=== PATIENT | male | born 1950 | race Caucasian/White ===

== ENCOUNTER 2017-05-07 16:09 | Inpatient (IN) | payer OTHER ==
[~2017-05-07] VITALS: Ht 188 cm; Wt 96.4 kg
--- NOTE | ~2017-05-07 | HC ---
[facility] [place] [address] CONSULTATION Name: JOCE YANG Room #: 206-P [facility] IN M.R.#: [id number] Admission: 05/07/17 Attend Phys: Tello Patrick MD Discharge: 05/11/17 Date of : 46 Report #: [id number] THIS REPORT FOR: //name// CC: Tello Patrick CARDIOLOGY CONSULTATION HISTORY OF PRESENT ILLNESS: The patient is a 66-year-old male, has a history of coronary artery disease and then followed by Dr. Sethi's group, Dr. Abdalla I think these gentlemen are both retired at [employer]. He has a stage 4 melanoma with metastatic disease to the lung and liver. He has been treated with multiple chemotherapy agents, but most recently Opdivo last Friday. He is having some progressive shortness of breath. He had some hypertension and bradydysrhythmias. He felt somewhat dizzy and lightheaded and short of breath and subsequently brought over by his ex- who they live together. Does have some short nonsustained runs of VT, which were noted in the ER and amiodarone drip was started. Also, the EKG does have some suspicious findings relatively unremarkable initially with an ST depression, which became marked in the anterior lateral leads. There were some lateral ST depression at baseline, but the anterior became more pronounced. Currently repeating this EKG. He feels comfortable. He denies current shortness of breath. HOME MEDICATIONS: Have been lisinopril, rosuvastatin, niacin, Plavix, CoQ10, levothyroxine, gabapentin, Xanax p.r.n., Ceftin recently and Omnicef, lisinopril he states although not on his list. PAST MEDICAL AND SURGICAL HISTORY: Positive for coronary artery disease and subsequent bypass surgery 2003, peripheral vascular disease followed by Dr. Maradiaga with left leg stents and the femoral-femoral artery bypass, hypertension, hypercholesterolemia, metastatic melanoma, history of squamous cell. REVIEW OF SYSTEMS: Negative except for stated above. There is some nocturia and some progressive dyspnea and shortness of breath. FAMILY HISTORY: Negative for premature coronary artery disease. SOCIAL HISTORY: He lives with his ex-. He still works. No children. He was a heavy tobacco user for 40 years, moderate alcohol use. PHYSICAL EXAMINATION: GENERAL: He is pleasant, alert. He is relatively asymptomatic. No chest pain or pressure currently. VITAL SIGNS: Blood pressure 134/100, pulse is 80s and some occasional frequent PVCs still noted, but improved on the monitor. HEENT: Pharynx is clear. NECK: Shows preserved upstrokes. [facility] [address] [place] [address] CONSULTATION Name: JOCE YANG [place] Room #: 206-P DIS IN M.R.#: [id number] Admission: 05/07/17 Attend Phys: Tello Patrick MD Discharge: 05/11/17 Date of : 46 Report #: [id number] LUNGS: Prolonged expiratory phase, but clear. CARDIOVASCULAR: Regular rate and rhythm, S1, S2 distant. ABDOMEN: Soft. No HSM or abdominal bruit. EXTREMITIES: Reveal no edema. Distal pulses were intact, diminished, I cannot palpate the DP. NEUROLOGIC: Intact. MUSCULOSKELETAL: No gross joint deformity. SKIN: There are multiple areas of actinic keratoses on his face. LABORATORY WORK: Troponin 0.15. BNP 4055, potassium 3.4. This has been replaced. Liver function tests are otherwise normal. H and H 13.5 and 37.6, white count 9.7, platelets 201. ASSESSMENT: 1. Chest pain, possible anginal equivalent. 2. Metastatic melanoma stage 4, currently Opdivo therapy. 3. Chronic dyspnea, chronic obstructive pulmonary disease with prior tobacco use. 4. Hypertension. 5. Hypercholesterolemia. RECOMMENDATIONS AND PLAN: We will obtain a troponin in the a.m., did have significant ST depression, which is essentially resolved in this anterior leads, so presumably would represent an ischemic response here. I will give him a shot of Lovenox tonight. Continue with the IV amiodarone load, may be ischemic driven, restart a statin. Check lipids, echo Doppler in the morning. We will consider cardiac catheterization, but presumably that would be in a day and a half from now. We will continue to load with the amiodarone, correct the potassium. We will follow with you. Thank you for asking me to assist in the care of this patient. <ELECTRONICALLY SIGNED> By: Davion Beck MD, FACC 05/30/17 0800 2224 0303 Davion Beck MD, FACC /nt
--- NOTE | ~2017-05-07 | EKG ---
[place] [address] [facility] [place] [address] ELECTROCARDIOGRAM REPORT Name: CELIAJOCE Ibrahim Room #: 206-P ADM IN M.R.#: [id number] Admission: 05/07/17 Attend Phys: Tello Patrick MD Discharge: Date of : 46 Report #: [id number] THIS REPORT FOR: //name// [facility] Test Date: 2017-05-07 Test Time: 22:21:03 Pat Name: JOCE YANG Department: Room: 206 P Gender: M Channel Specialist: [place] JONAS : 1950 Requested By: Davion Beck Order Number: [id number] MD: Omar Malik Measurements Intervals [place] Rate: 72 P: 46 NC: 159 QRS: 92 QRSD: 105 T: 109 QT: 416 QTc: 456 Interpretive Statements Sinus rhythm Paired ventricular premature complexes Right axis deviation Repol abnrm suggests ischemia, diffuse leads Compared to ECG 05/02/2014 07:14:16 Low voltage in the lateral leads no longer present Electronically Signed On 05-08-2017 8:24:27 SCHOOL COUNSELOR by Omar Malik [email or web address] <ELECTRONICALLY SIGNED> By: Omar Malik MD, [facility] 05/08/17 0824 20 20 Omar Malik MD, [facility] /EPI
--- NOTE | ~2017-05-07 | EKG ---
[place] [address] [facility] [place] [address] ELECTROCARDIOGRAM REPORT Name: CELIAJOCE Ibrahim Room #: 206-P ADM IN M.R.#: [id number] Admission: 05/07/17 Attend Phys: Tello Patrick MD Discharge: Date of : 46 Report #: [id number] THIS REPORT FOR: //name// [facility] ED Test Date: 2017-05-07 Test Time: 16:21:08 Pat Name: JOCE YANG Department: Room: [facility] Gender: M Editor Index: DEVORAH : 1950 Requested By: Marcela Hernandez Order Number: [id number] MD: Omar Malik Measurements Intervals [place] Rate: 79 P: 22 MA: 168 QRS: 83 QRSD: 106 T: 31 QT: 408 QTc: 468 Interpretive Statements Sinus rhythm Ventricular premature complex Borderline right axis deviation Repol abnrm suggests ischemia, diffuse leads Compared to ECG 05/02/2014 07:14:16 Ventricular premature complex(es) now present ST and T wave abnormality is more pronounced Electronically Signed On 05-08-2017 8:17:22 CORSET FITTER by Omar Malik [email or web address] <ELECTRONICALLY SIGNED> By: Omar Malik MD, FAC 05/08/17 0817 1621 1621 Omar Malik MD, [facility] /EPI
--- NOTE | ~2017-05-07 | EKG ---
[place] [address] [facility] [place] [address] ELECTROCARDIOGRAM REPORT Name: CELIAJOCE Room #: 206-P ADM IN M.R.#: [id number] Admission: 05/07/17 Attend Phys: Tello Patrick MD Discharge: Date of : 46 Report #: [id number] THIS REPORT FOR: //name// [facility] ED Test Date: 2017-05-07 Test Time: 18:00:06 Pat Name: JOCE YANG Department: Room: 206 Gender: M Check Clerk: MZOOK : 1950 Requested By: Marcela Hernandez Order Number: [id number] MD: Omar Malik Measurements Intervals [place] Rate: 115 P: 87 DE: 144 QRS: 95 QRSD: 100 T: 192 QT: 316 QTc: 437 Interpretive Statements Sinus tachycardia Ventricular tachycardia, unsustained Nonspecific ST and T wave abnormality Compared to ECG 05/02/2014 07:14:16 Ventricular tachycardia now present low voltage in the lateral leads now present Electronically Signed On 05-08-2017 8:21:40 TICKET TAKER FERRYBOAT by Omar Malik [email or web address] <ELECTRONICALLY SIGNED> By: Omar Malik MD, FAC 05/08/17 0821 1800 1800 Omar Malik MD, [facility] /EPI
--- NOTE | ~2017-05-07 | EKG ---
[address] [place] [address] ELECTROCARDIOGRAM REPORT Name: CELIAJOCE [place] Room #: 206-P ADM IN M.R.#: [id number] Admission: 05/07/17 Attend Phys: Tello Patrick MD Discharge: Date of : 46 Report #: [id number] THIS REPORT FOR: //name// [facility] ED Test Date: 2017-05-07 Test Time: 17:57:36 Pat Name: JOCE YANG Department: Room: 206 Gender: M Recovery Agent: MZOOK : 1950 Requested By: Marcela Hernandez Order Number: [id number] MD: Omar Malik Measurements Intervals [place] Rate: 104 P: 60 WV: 155 QRS: 93 QRSD: 109 T: 214 QT: 350 QTc: 461 Interpretive Statements Sinus tachycardia Paired ventricular premature complexes Left posterior fascicular block Repol abnrm, consider ischemia Compared to ECG 05/02/2014 07:14:16 ST and T wave abnormality is more pronounced Electronically Signed On 05-08-2017 8:20:37 VOCAL PERFORMER by Omar Malik [email or web address] <ELECTRONICALLY SIGNED> By: Omar Malik MD, [facility] 05/08/17 0820 1757 1757 Omar Malik MD, [facility] /EPI
--- NOTE | ~2017-05-07 | 2DMMODE ---
[facility] [employer] [place] [address] 2 D/M-MODE ECHOCARDIOGRAM Name: CELIAJOCE Room #: 206-P [facility] IN ..#: [id number] Admission: 05/07/17 Attend Phys: Tello Patrick, Discharge: Date of : 46 Date of Service: 05/08/17 0837 Report #: [id number] THIS REPORT FOR: //name// APPROVED REPORT Study performed: 05/08/2017 08:38:43 EXAM: Comprehensive 2D, Doppler, and color-flow Echocardiogram Patient Location: Bedside Room #: 206 Status: routine BSA: 2.33 HR: 75 bpm BP: 124/85 mmHg Rhythm: NSR/frequent PVCs Other Information Study Quality: Adequate/low parasternal window. Difficult images. Indications Short of breath, chest pain, HTN, V-tach. Hx: CABG, PVD, HTN, HLP 2D Dimensions RVDd: 42.39 mm LVEF(%): 41.32 (>50%) IVSd: 12.14 (7-11mm) LVOT Diam: 20.22 (18-24mm) LVDd: 57.78 mm PWd: 11.73 (7-11mm) LVDs: 45.91 (25-40mm) Aortic Root: 36.30 mm Moody's LVEF: 41.32 % Volumes Left Atrial Volume (Systole) Single Plane 4CH: 50.86 mL Single Plane 2CH: 75.66 mL LA ESV Index: 29.00 mL/m2 Aortic Valve AoV Peak Erick.: 1.26 m/s AO Peak Gr.: 7.03 mmHg LVOT Max P.62 mmHg LVOT Max V: 0.84 m/s JAH Vmax: 2.14 cm2 Mitral Valve MV Decel. Time: 96.97 ms [facility] [employer] [place] [address] 2 D/M-MODE ECHOCARDIOGRAM Name: JOCE YANG Room #: 206-P [facility] IN ..#: [id number] Admission: 05/07/17 Attend Phys: Tello Patrick, Discharge: Date of : 46 Date of Service: 05/08/17 0837 Report #: [id number] MV E Max Erick.: 1.10 m/s Pulmonary Valve PV Peak Erick.: 0.80 m/s PV Peak Gr.: 2.66 mmHg Tricuspid Valve TR Peak Erick.: 2.07 m/s RAP Estimate: 10.00 mmHg TR Peak Gr.: 17.44 mmHg PA Pressure: 27.00 mmHg Left Ventricle Left ventricle is mildly dilated. There is normal left ventricular wall thickness. Left ventricular systolic function is moderate to moderately severe. LVEF is 35%. Akinesis of inferior wall and inferoseptum This study is not technically sufficient to allow evaluation of the LV diastolic function due to arrhythmia. Right Ventricle The right ventricle is normal size. Right ventricle is hypokinetic. Atria The left atrium size is normal. The right atrium size is normal. Aortic Valve The aortic valve is mildly sclerotic. Mild aortic regurgitation. There is no aortic valvular stenosis. Mitral Valve The mitral valve is normal in structure. Moderate mitral regurgitation. Tricuspid Valve The tricuspid valve is normal in structure. Mild tricuspid regurgitation. Estimated PAP is 25-30mmHg. Pulmonic Valve Pulmonic valve is not well visualized. Mild pulmonic regurgitation. Great Vessels The aortic root is normal in size. Ascending aorta is not well visualized. IVC is dilated and collapses <50% with inspiration. [facility] [address] [place] [address] 2 D/M-MODE ECHOCARDIOGRAM Name: CELIAJOCE Room #: 206-P [facility] IN .R.#: [id number] Admission: 05/07/17 Attend Phys: Tello Patrick, Discharge: Date of : 46 Date of Service: 05/08/17 0837 Report #: [id number] Pericardium There is no pericardial effusion. <Conclusion> Left ventricular systolic function is moderate to moderately severe. LVEF is 35%. Akinesis of inferior wall and inferoseptum The aortic valve is mildly sclerotic. Mild aortic regurgitation, no stenosis. The mitral valve is normal in structure. Moderate mitral regurgitation. Mild tricuspid regurgitation. Estimated pulmonary artery pressure is 25-30mmHg. There is no pericardial effusion. <ELECTRONICALLY SIGNED> By: Omar Malik MD, [facility] 05/08/17836 6 6 Omar Malik MD, FACC /INF
--- NOTE | ~2017-05-07 | CATHLAB ---
[facility] [address] [place] [address] INVASIVE PROCEDURE REPORT Name: JOCE YANG Room #: 206-P [facility] IN [facility]#: [id number] Admission: 05/07/17 Attend Phys: Tello Patrick, Discharge: 05/11/17 Date of : 46 Date of Service: 05/17/17 2325 Report #: [id number] THIS REPORT FOR: //name// APPROVED REPORT Patient Details Patient Status: In-Patient Room #: The patient is a 66 year-old male Event Personnel Davion Beck Lawyer Probate, Billy Funes RN, Kimberli Johnston Monitor, Gayle Carrion ELECTRIC BLASTING CAP ASSEMBLER Scrub Procedures Performed Art Access - R femoral artery* Left Heart Cath Coronaries, Bypass Grafts 9215788 LHCCORCABG 61013 Initial Mod Sed Same Phys/QHP Gr5y 766513 99077 Mod Sed Same Phys/QHP Ea 745830 PTCA Single Vessel LAD 9709185 PCISINGLE Aortogram Abdominal Peripheral Angio 870838 Hemostasis with Manual pressure Procedure Narrative The patient was brought urgently to the Cardiac Catheterization Laboratory and was prepped and draped in a sterile manner. The Right Groin^ was infiltrated with 1% Lidocaine subcutaneous anesthesia. A PINNACLE 6FR Sheath #[id number] sheath was inserted into the RFA^. Coronary angiography was performed using coronary diagnostic catheters. The right coronary system was accessed and visualized with a JR 4 catheter. The left coronary system was accessed and visualized with a JL 4 catheter. The left ventricle was accessed and visualized with a Pigtail catheter. Left ventricular/Aortic Valve gradient assessed via catheter pullback. Left ventriculogram was performed in HARTLEY projection. An aortogram of the abdominal aorta was performed. The patient tolerated the procedure well and there were no complications associated with the procedure. There was no hematoma. Intraoperative Conscious Sedation Sedation start time: 13:08 Case end Time: 13:57 Fentanyl 100.0 mcg Versed 2.0 mg Fluoro Time: 13.13 minutes Dose: 1754 mGy Contrast Type and Amount: Omnipaque [address] [address] INVASIVE PROCEDURE REPORT Name: PARTHA YANGNitza Ibrahim Room #: 206-P [facility]#: [id number] Admission: 05/07/17 Attend Phys: Tello Patrick, Discharge: 05/11/17 Date of : 46 Date of Service: 05/17/17 2325 Report #: [id number] Hemodynamics The aortic pressure is 146/71 mmHg with a mean of 82 mmHg. The left ventricular pressure is 143/18 mmHg with a mean of mmHg. The left ventricular end diastolic pressure is 37 mmHg. PCI Technique Lesion Anticoagulation was achieved with Heparin. Percutaneous coronary intervention was performed on the Circ. A LAUNCHER 6FR EBU 4 #[id number] Guide Catheter was used to engage the Left Main ostium. A Luge Wire .014 x 182CM #[id number] Interventional Guidewire was used to cross the lesion. BALLOON DILATION A Balloon catheter Sprinter OTW 1.5 x 12 #[id number] was inserted and inflated up to 18.00atm for 35seconds. Additional Inflation: 20.00atm for 23seconds. Conclusion #1 PTCA of the ostial circumflex subtotal with large significant calcium burden minimal improvement in luminal flow 1.5 balloon9 could not deliver a larger size balloon #2 left main subtotal lesion involving the ostium of the left circumflex the LAD was flush occluded #3 KRAUS to LAD was intact filling a diffusely diseased LAD and some diagonal filling #4 SVG due to possible diagonal OM system is intact provides some left to left filling in addition mild disease #5 SVG to PDA is atraumatic and essentially nonfunctional #6 the [place] circumflex is essentially subtotally occluded ostial and proximal vessel filling the distal OM. The more proximal OM branches are filled via vein graft #7 the [place] right coronary artery is flush occluded Recommendations and plan or continue aggressive risk factor modification would treat this ostial circumflex distal left main lesion is not amenable to atherectomy with Rotablator due to the angle not amenable to intervention with laser due to the extensive calcification. No lifting for 48 hours to line tub Jacuzzi or Aguero for a week. We'll advance medical therapy and close follow-up. What is patent does not appear to be at risk. <ELECTRONICALLY SIGNED> By: Davion Beck MD, FACC 05/17/172324 24 24 Davion Beck MD, FACC /INF
--- NOTE | ~2017-05-07 | EKG ---
[address] [place] [address] ELECTROCARDIOGRAM REPORT Name: PARTHA YANGD [place] Room #: 206-P ADM IN M.R.#: [id number] Admission: 05/07/17 Attend Phys: Tello Patrick MD Discharge: Date of : 46 Report #: [id number] THIS REPORT FOR: //name// [facility] Test Date: 2017-05-09 Test Time: 06:39:18 Pat Name: JOCE YANG Department: Room: 206 P Gender: M Assistant Center Manager: KEY : 1950 Requested By: Davion Beck Order Number: [id number] MD: Omar Malik Measurements Intervals [place] Rate: 59 P: 37 VT: 169 QRS: 79 QRSD: 114 T: 32 QT: 472 QTc: 468 Interpretive Statements Sinus rhythm Nonspecific repol abnormality, diffuse leads Compared to ECG 05/08/2017 07:38:31 Ventricular tachycardia no longer present Electronically Signed On 05-09-2017 9:20:46 HIDES AND SKINS COLORER by Omar Malik [email or web address] <ELECTRONICALLY SIGNED> By: Omar Malik MD, [facility] 05/09/17 0920 Omar Malik MD, [facility] /EPI
--- NOTE | ~2017-05-07 | EKG ---
[address] [place] [address] ELECTROCARDIOGRAM REPORT Name: PARTHA YANGD [place] Room #: 206-P ADM IN M.R.#: [id number] Admission: 05/07/17 Attend Phys: Tello Patrick MD Discharge: Date of : 46 Report #: [id number] THIS REPORT FOR: //name// [facility] Test Date: 2017-05-08 Test Time: 07:38:31 Pat Name: JOCE YANG Department: Room: 206 P Gender: M Comic Book Artist: sharon : 1950 Requested By: Marcela Hernandez Order Number: [id number] MD: Omar Malik Measurements Intervals [place] Rate: 96 P: [place]: QRS: 90 QRSD: 115 T: 174 QT: 378 QTc: 478 Interpretive Statements Sinus rhythm Ventricular tachycardia, unsustained Nonspecific intraventricular conduction delay Repol abnrm suggests ischemia, diffuse leads Compared to ECG 05/02/2014 07:14:16 No significant change was found Electronically Signed On 05-08-2017 8:29:33 ENLISTED ADVISOR by Omar Malik [email or web address] <ELECTRONICALLY SIGNED> By: Omar Malik MD, [facility] 05/08/17 0829 0738 0738 Omar Malik MD, [facility] /EPI
[~2017-05-07 16:09] MED LIST: ALPRAZOLAM 0.0.25 M1 PO; ASPIR 8181 MG PO; CLOPIDOGREL75 MG PO; CO Q-1010 MG PO; CRESTOR5 MG PO; FISH OIL 1,001000 M1 PO; LEVOTHROID150 MCG PO; LEVOTHYROXINE 0.1 MG PO; LISINOPRIL-HCT1 EAC2 PO; MAGNESIUM250 M1 PO; MINIPRIN81 MG PO; NIACIN 100MG T100 M1 PO; PERCOCET 5-3251 EACH PO; TOPROL XL200 MG PO; VITAMIN D1000 UNI1 PO
[2017-05-07 16:10] VITALS: BP 143/96
[2017-05-07 17:02] LABS: ABSOLUTE NEUTROPHILS 6.6 thou/uL (1.4-8.2); BASOPHILS 0.3 % (0.0-2.0); EOSINOPHILS 3.2 % (0.0-3.0); HEMATOCRIT 37.6 % (42.0-52.0); HEMOGLOBIN 13.5 gm/dL (14.0-18.0); LYMPHOCYTES 17.9 % (24.0-44.0); MCH 33.1 pg (26.0-34.0); MCHC 35.9 g/dL (28.0-37.0); MCV 92.3 fL (80.0-100.0); MONOCYTES 10.1 % (1.0-8.0); PLATELET COUNT 201 thou/uL (150-400); POLYS 68.5 % (36.0-66.0); RBC 4.07 mil/uL (4.50-6.00); RDW 13.6 % (10.5-14.5); WBC 9.7 thou/uL (4.0-11.0)
[2017-05-07] MEDS ORDERED: CEFDINIR300 MG PO (17:05)
[2017-05-07] MEDS ORDERED: CEFUROXIME250 MG PO (17:06)
[2017-05-07] MEDS ORDERED: XANAX 0.5 MG0.5 MG PO (17:06)
[2017-05-07] MEDS ORDERED: METHYLPHENIDATE10 MG PO (17:07)
[2017-05-07] MEDS ORDERED: QUETIAPINE FUM100 MG PO (17:07)
[2017-05-07] MEDS ORDERED: NEURONTIN 300300 M1 PO (17:07)
[2017-05-07] MEDS ORDERED: GABAPENTIN100 MG PO (17:07)
[2017-05-07 17:10] LABS: CALCIUM 8.8 mg/dL (8.5-10.1); CREATININE 0.8 mg/dL (0.7-1.3); POTASSIUM 3.4 mmol/L (3.5-5.1)
[2017-05-07] MEDS ORDERED: OPDIVO100 MG/10 IV ×2 (17:11→17:13)
[2017-05-07] MEDS ORDERED: YERVOY IV ×2 (17:11→17:13)
[2017-05-07 17:18] LABS: ALBUMIN 3.4 g/dL (3.4-5.0); TOTAL BILIRUBIN 0.5 mg/dL (<0.1-1.0); TOTAL PROTEIN 6.7 g/dL (6.4-8.2); TROPONIN-I 0.15 ng/mL (<0.06)
[2017-05-07 20:06] VITALS: BP 141/90
[2017-05-07 20:32] VITALS: BP 135/105
[2017-05-07 23:57] VITALS: BP 146/96
[2017-05-08] VITALS (13 sets, daily range): BP systolic 91–146; BP diastolic 68–86
[2017-05-08 06:59] LABS: HEMATOCRIT 37.6 % (42.0-52.0); HEMOGLOBIN 13.3 gm/dL (14.0-18.0); MCH 32.6 pg (26.0-34.0); MCHC 35.3 g/dL (28.0-37.0); MCV 92.5 fL (80.0-100.0); RBC 4.06 mil/uL (4.50-6.00); RDW 13.6 % (10.5-14.5); WBC 8.6 thou/uL (4.0-11.0)
[2017-05-08 07:11] LABS: ANION GAP 11 mmol/L (7-16); BUN 12 mg/dL (7-18); CALCIUM 8.6 mg/dL (8.5-10.1); CHLORIDE 103 mmol/L (98-107); CHOLESTEROL 129 mg/dL (<200); CO2 24 mmol/L (21-32); CREATININE 0.9 mg/dL (0.7-1.3); GLUCOSE 139 mg/dL (74-106); HDL CHOLESTEROL 35 mg/dL (>40); LDL CHOLESTEROL 66 mg/dL (<100); SODIUM 138 mmol/L (136-145); TC:HDL 3.7 Ratio (Not establshd); TRIGLYCERIDE 143 mg/dL (<150); VLDL 29 mg/dL (<40)
[2017-05-09 03:19] VITALS: BP 124/68
[2017-05-09 03:34] LABS: HEMOGLOBIN 12.8 gm/dL (14.0-18.0); MCH 33.1 pg (26.0-34.0); MCHC 35.5 g/dL (28.0-37.0); MCV 93.5 fL (80.0-100.0); RBC 3.85 mil/uL (4.50-6.00); RDW 13.8 % (10.5-14.5); WBC 8.9 thou/uL (4.0-11.0)
[2017-05-09 03:49] LABS: CALCIUM 8.2 mg/dL (8.5-10.1); CREATININE 1.1 mg/dL (0.7-1.3); POTASSIUM 4.1 mmol/L (3.5-5.1); TROPONIN-I 0.33 ng/mL (<0.06)
[2017-05-09 08:36] VITALS: BP 122/76
[2017-05-09 12:22] VITALS: BP 95/61
[2017-05-09 15:31] VITALS: BP 113/66
[2017-05-09 19:26] VITALS: BP 99/63
[2017-05-09 21:30] VITALS: BP 116/66
[2017-05-10 00:36] VITALS: BP 109/74
[2017-05-10 03:28] VITALS: BP 124/69
[2017-05-10 04:41] LABS: CALCIUM 8.1 mg/dL (8.5-10.1); MAGNESIUM 1.7 mg/dL (1.8-2.4); POTASSIUM 3.6 mmol/L (3.5-5.1)
[2017-05-10 07:35] VITALS: BP 133/81
[2017-05-10 11:25] VITALS: BP 129/76
[2017-05-10 15:19] VITALS: BP 127/82
[2017-05-10 19:38] VITALS: BP 121/66
[2017-05-11 05:25] VITALS: BP 151/89
[2017-05-11 07:30] VITALS: BP 154/89
[2017-05-11] MEDS ORDERED: IMDUR 30 MG TAB30 M1 PO (07:40)
[2017-05-11] MEDS ORDERED: LISINOPRIL5 MG PO (07:41)
[2017-05-11] MEDS ORDERED: CARVEDILOL6.25 MG PO (07:41)
[2017-05-11] MEDS ORDERED: ASPIRIN325 PO (07:41)
[2017-05-11] MEDS ORDERED: AUGMENTIN 875-1 EACH PO (07:43)
[2017-05-11 10:02] VITALS: BP 154/89
== END 2017-05-11 12:03 | disposition home or self-care (01) | DRG 250 ==
LOC: ER 16:09 → 2N 17:40 → EROBS 17:40 → 2N 20:14
PROVIDERS: Internal Medicine Cardiovascular Disease; Physician Assistant
PROC: 4A023N7 Measurement of Cardiac Sampling and Pressure, Left Heart, Percutaneous Approach (ICD-10-PCS; principal; 2017-05-11)
PROC: B2111ZZ Fluoroscopy of Multiple Coronary Arteries using Low Osmolar Contrast (ICD-10-PCS; principal; 2017-05-11)
PROC: 02703ZZ Dilation of Coronary Artery, One Artery, Percutaneous Approach (ICD-10-PCS; principal; 2017-05-11)
DX: I21.4 Non-ST elevation (NSTEMI) myocardial infarction (principal); J18.9 Pneumonia, unspecified organism; I47.2 Ventricular tachycardia; C78.00 Secondary malignant neoplasm of unspecified lung; I25.10 Atherosclerotic heart disease of native coronary artery without angina pectoris; I73.9 Peripheral vascular disease, unspecified; I10 Essential (primary) hypertension; I24.9 Acute ischemic heart disease, unspecified; E78.00 Pure hypercholesterolemia, unspecified; J44.9 Chronic obstructive pulmonary disease, unspecified; I35.1 Nonrheumatic aortic (valve) insufficiency; I25.5 Ischemic cardiomyopathy; Z88.6 Allergy status to analgesic agent; Z95.5 Presence of coronary angioplasty implant and graft; Z95.1 Presence of aortocoronary bypass graft; Z88.1 Allergy status to other antibiotic agents; Z88.0 Allergy status to penicillin; Z87.891 Personal history of nicotine dependence
CPT/HCPCS: 10081

== ENCOUNTER → 2017-05-20 | Outpatient (CLI) | payer OTHER ==
[~2017-05-20] MED LIST changes: +ASPIRIN325 PO; +AUGMENTIN 875-1 EACH PO; +CARVEDILOL6.25 MG PO; +CEFDINIR300 MG PO; +CEFUROXIME250 MG PO; +GABAPENTIN100 MG PO; +IMDUR 30 MG TAB30 M1 PO; +LISINOPRIL5 MG PO; +METHYLPHENIDATE10 MG PO; +NEURONTIN 300300 M1 PO; +OPDIVO100 MG/10 IV; +QUETIAPINE FUM100 MG PO; +XANAX 0.5 MG0.5 MG PO; +YERVOY IV
== END ==
LOC: RAD 09:35
DX: J18.9 Pneumonia, unspecified organism (principal); I51.7 Cardiomegaly; R91.8 Other nonspecific abnormal finding of lung field